=== PATIENT | female | born 1955 | race Caucasian/White ===

== ENCOUNTER 2016-08-13 08:33 | Day surgery (SDC) | payer OTHER ==
[~2016-08-13] VITALS: Ht 176.5 cm; Wt 102.5 kg
[~2016-08-13 08:33] MED LIST: ALEN70TA5 PO; ATOR10TA PO; BACITRACIN 50,000 UNIT ONE; BUPIVACAINE/PF 0.25% ONE; BUPIVACAINE/PF 0.5% ONE; COLE1TAB4 PO; FLUO60TA PO; GABA300C10 PO; HYDR-3138 PO; LEVO112T4 PO; LISI-167 PO; MECL25TA4 PO
[2016-08-13] MEDS ORDERED: LACTATED RINGERS 1,000 ML IV SCH (09:15)
[2016-08-13 09:17] VITALS: BP 128/87
[2016-08-13] MEDS ORDERED: FENTANYL PF 100 MCG/2ML ONE ×2 (09:57→11:33)
[2016-08-13] MEDS ORDERED: MIDAZOLAM 1 MG/ML, 2ML ONE (09:57)
[2016-08-13] MEDS ORDERED: KETOROLAC 30 MG/1 ML ONE ×2 (09:58→10:53)
[2016-08-13] MEDS ORDERED: PROPOFOL 10 MG/ML, 50ML ONE (09:58)
[2016-08-13] MEDS ORDERED: LIDOCAINE 1%-EPI 1:100K, 30ML ONE (10:09)
[2016-08-13] MEDS ORDERED: BUPIVACAINE/PF-EPI 0.5% 1:200K ONE (10:09)
[2016-08-13] MEDS ORDERED: OXYcodone 5 MG/5 ML ORAL.SOL UDC PO PRN (10:30)
[2016-08-13] MEDS ORDERED: MEPERIDINE/PF 25MG/0.5ML IVPush PRN (10:30)
[2016-08-13] MEDS ORDERED: FENTANYL PF 100 MCG/2ML IV PRN (10:30)
[2016-08-13] MEDS ORDERED: METOPROLOL 1 MG/ML, 5ML IV PRN (10:30)
[2016-08-13] MEDS ORDERED: HYDROmorphone 1 MG/ML, 1ML IV PRN (10:30)
[2016-08-13] MEDS ORDERED: PROMETHAZINE 25 MG/ML, 1ML IV PRN (10:30)
[2016-08-13] MEDS ORDERED: hydrALAzine 20 MG/ML, 1ML IV PRN (10:30)
[2016-08-13] MEDS ORDERED: ACETAMINOPHEN 325 MG TABLET PO PRN (10:30)
[2016-08-13] MEDS ORDERED: LIDOCAINE 1%-EPI 1:100K, 30ML INFIL ONE (10:59)
[2016-08-13] MEDS ORDERED: HYDROcodone/APAP 7.5-325MG/15ML UDC ONE (11:33)
[2016-08-13] MEDS ORDERED: HYDROcodone/APAP 7.5-325MG/15ML UDC PO PRN (12:00)
== END 2016-08-13 13:00 | disposition home or self-care (01) ==
LOC: OUT 08:33
PROVIDERS: ATTEND Orthopaedic Surgery
DX: G56.02 Carpal tunnel syndrome, left upper limb (principal); M65.312 Trigger thumb, left thumb; I10 Essential (primary) hypertension; Z85.528 Personal history of other malignant neoplasm of kidney; E89.0 Postprocedural hypothyroidism; Z90.5 Acquired absence of kidney; F41.9 Anxiety disorder, unspecified; F32.9 Major depressive disorder, single episode, unspecified; E78.00 Pure hypercholesterolemia, unspecified; M81.0 Age-related osteoporosis without current pathological fracture; Z90.710 Acquired absence of both cervix and uterus; Z72.89 Other problems related to lifestyle
CPT/HCPCS: 26055; 29848; J1885; J2250; J2704; J3010; J3490; J7120

== ENCOUNTER → 2016-12-14 | Outpatient (CLI) | payer OTHER ==
[~2016-12-14] MED LIST changes: -BACITRACIN 50,000 UNIT ONE; -BUPIVACAINE/PF 0.25% ONE; -BUPIVACAINE/PF 0.5% ONE
== END | disposition home or self-care (01) ==
LOC: CFH 10:33
PROVIDERS: ATTEND Urology
DX: Z85.528 Personal history of other malignant neoplasm of kidney (principal)
CPT/HCPCS: 71020; 76700

== ENCOUNTER → 2016-12-24 | Outpatient (CLI) | payer OTHER ==
[~2016-12-24] MED LIST changes: +FAT FIGHTER PO; +L-LYSINE PO; +MULT1TAB60 PO
[2016-12-24 13:19] LABS: ASPARTATE AMINO TRANSFERASE 20 U/L (15-37); BLOOD UREA NITROGEN 17 mg/dL (7-18)
== END | disposition home or self-care (01) ==
LOC: STAR 12:13
PROVIDERS: ATTEND Orthopaedic Surgery
DX: G56.03 Carpal tunnel syndrome, bilateral upper limbs (principal)
CPT/HCPCS: 36415; 80053

== ENCOUNTER 2017-01-07 05:44 | Day surgery (SDC) | payer OTHER ==
[~2017-01-07] VITALS: Ht 176.5 cm; Wt 95.9 kg
[2017-01-07] MEDS ORDERED: LACTATED RINGERS 1,000 ML IV SCH (06:08)
[2017-01-07 06:10] VITALS: BP 138/83
[2017-01-07] MEDS ORDERED: EPINEPHRINE 1 MG/ML, 1ML ONE (06:59)
[2017-01-07] MEDS ORDERED: BUPIVACAINE/PF 0.5% ONE (06:59)
[2017-01-07] MEDS ORDERED: LIDOCAINE/PF 1%, 30ML ONE (07:00)
[2017-01-07] MEDS ORDERED: FENTANYL PF 100 MCG/2ML ONE (07:05)
[2017-01-07] MEDS ORDERED: MIDAZOLAM 1 MG/ML, 2ML ONE (07:05)
[2017-01-07] MEDS ORDERED: CEFAZOLIN 1,000 MG ONE (07:25)
[2017-01-07] MEDS ORDERED: ONDANSETRON 2MG/ML, 2ML ONE (07:25)
[2017-01-07] MEDS ORDERED: PROPOFOL 10 MG/ML, 50ML ONE (07:25)
[2017-01-07] MEDS ORDERED: PROPOFOL 10 MG/ML, 20ML ONE (07:25)
[2017-01-07] MEDS ORDERED: HYDROcodone/APAP 7.5-325MG/15ML UDC ONE (08:20)
[2017-01-07] MEDS ORDERED: PROMETHAZINE 25 MG/ML, 1ML IV PRN (08:30)
[2017-01-07] MEDS ORDERED: HYDROcodone/APAP 7.5-325MG/15ML UDC PO PRN (08:30)
== END 2017-01-07 09:40 ==
LOC: OUT 05:44
PROVIDERS: ATTEND Orthopaedic Surgery
DX: G56.01 Carpal tunnel syndrome, right upper limb (principal); M65.331 Trigger finger, right middle finger; I10 Essential (primary) hypertension; E03.9 Hypothyroidism, unspecified; E89.0 Postprocedural hypothyroidism
CPT/HCPCS: 26055; 29848; J0171; J0690; J2250; J2405; J2704; J3010; J3490; J7120